=== PATIENT | male | born 1950 | race Caucasian/White ===

== ENCOUNTER 2023-12-01 09:58 | Emergency (ER) | payer OTHER, SELFPAY ==
[2023-12-01] VITALS (14 sets, daily range): BP systolic 102–164; BP diastolic 63–120; PULSE 71–83; BMI 29.2
--- NOTE | 2023-12-01 11:00 | ED.CVA ---
History of Present Illness
<Rachel Claros MD, Resident - Last Filed: 12/04/23 21:54>
General
Chief Complaint: CVA/TIA Symptoms
Source: patient, records and spouse
Exam Limitations: none
Time Seen by Provider: 12/01/23 11:00
Onset of Stroke Symptoms
Onset of symptoms known: Yes
Date of onset of symptoms: 11/27/23
Time of onset of symptoms: 10:00
Time pt last seen normal is known: No
Travel History
Have you traveled to any high risk areas for coronavirus over the past 14 days?: No
Have you had any contact with someone who has COVID-19?: No
Do you have any symptoms of coronavirus? Fever > 100 degrees, chills, cough, shortness of breath, sore throat, loss of taste or smell, muscle aches, or headache?: No
Is patient interested in receiving COVID-19 vaccine if eligible?: No
History of Present Illness
History of Present Illness:
73-year-old male with past medical history significant for stroke, depression, hyperlipidemia, Parkinson's disease presents to the ER for multiple falls. He had 2 falls on Thursday. After the first fall he was not able to get up by himself and his
had to lift him from the floor. After the fall he has been struggling to get up from the chair, put on his clothes, difficulty in wearing shoes, and maintaining steady gait. He had 2 subsequent falls following the initial 1 just tripping on
the carpet and second trying to get up from the chair. His episodes are not preceded by lightheadedness, dizziness, chest pain, palpitations, shortness of breath. He was awake alert and oriented through all 3 falls, and did not have any bowel or
bladder incontinence during the falls, no staring episodes during the falls, no rolling of eyes or tongue biting during the falls.
He has difficulty coordinating his tasks.
He has increased urinary frequency and hesitancy, was diagnosed with UTI about 4 days ago and was given cefuroxime aided by his primary care. He had a single episode of incontinence of his urine which prompted his visit to primary care.
He had about 5 falls an year ago for which he saw Dr. Middleton, neurology and was evaluated for Parkinson's and stroke.
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
Past History
<Rachel Claros MD, Resident - Last Filed: 12/04/23 21:54>
Past History
ED Past Medical History: CVA, Hypercholesterolemia and Psychiatric (Depression)
ED Past Surgical History: None
Patient has exhibited threatening behavior?: No
Social History
Tobacco: Non-smoker
Alcohol: Occasional
Drug: None
Personal:
Living: with family
Employment: Retired
Family History
Family History: Other (brother also has increased history of falls)
Review of Systems
<Rachel Claros MD, Resident - Last Filed: 12/04/23 21:54>
Review of Systems
Constitutional: Reports no symptoms
EENT: Reports no symptoms
Respiratory: Reports no symptoms
Cardiac: Reports no symptoms
ABD/GI: Reports no symptoms
: Reports no symptoms
Musculoskeletal: Reports other (Proximal and distal muscle weakness.)
Neurological: Reports weakness and other (Falls, fatigue, difficulty dressing up, difficulty wearing shoes, difficulty wearing contact lens.)
Phy Exam
<Rachel Claros MD, Resident - Last Filed: 12/04/23 21:54>
General Physical Exam
General Presentation: well appearing and no apparent distress
General Skin: warm and other (Bruising noted on the back.)
General Habitus: normal
General Mental: alert
General Hydration: appears well hydrated
Eye Exam
Eye Exam: PERRL and EOMI
Cardiovascular Exam
Cardiovascular Exam: regular rate/rhythm, no edema, no gallop and no murmur
Heart Sounds: normal
Pulmonary Exam
Pulmonary Exam: lungs clear, no respiratory distress, no rales, no crackles and no rhonchi
Gastrointestinal Exam
Gastrointestinal Exam: normal bowel sounds, non tender, soft and non distended
Neurological Exam
Neurological Exam: alert, oriented x3, facial droop and other (Pronator drift on right hand, smith to heel test positive, strength-4/5 in thighs, [id number]-ml-[id number] test difficult on the right hand, altered sensation on bilateral anterior shins, smith to
heel test positive.)
NIH Stroke Score
Level of Consciousness: 0 - Alert
LOC questions: 0-Answers both correctly
LOC Commands: 0-Performs both correctly
Best Gaze: 0-Normal
Visual Tony: 0=Normal, no visual loss
Facial palsy: 2=Partial paralysis
Motor - Right Arm: 1=Drift < 10 seconds
Motor - Left Arm: 0=No drift 10 seconds
Motor - Right Le-No drift 5 seconds
Motor - Left Le-No drift 5 seconds
Limb Ataxia: 0-Absent
Sensation: 1-Mild loss
Best Language: 0-No aphasia
Dysarthria: 0-Normal
Extinction and Inattention: 0-No abnormality
Total Score:: 4
Alteplase Contraindication
Reasons for NON-Treatment with Thrombolytics: Time
Musculoskeletal Exam
Musculoskeletal Exam: full ROM and other (No spinal or paraspinal tenderness )
Skin Exam
Skin Exam: normal color
Psychiatric Exam
Psychiatric Exam: normal mood/affect
<Cresencio Rahman MD - Last Filed: 12/01/23 12:51>
NIH Stroke Score
Total Score:: 4
<Jossie Castro PA-C - Last Filed: 12/02/23 22:54>
NIH Stroke Score
Total Score:: 4
Course
<Rachel Claros MD, Resident - Last Filed: 12/04/23 21:54>
Orders/Labs/Results
Orders:
Orders
12/01/23 11:45
NEUROLOGY CONSULT Urgent
Consulting Provider: Chris Middleton
Was physician already notified: Yes
Reason for consult: CVA symptoms.
Cardiac Monitoring- Treatment ONCE
12/01/23 11:46
Electrocardiogram (*1) Stat
Reason for Study: Other
Other Reason for Exam: neuro symptoms
EKG- Treatment ONCE
12/01/23 12:06
Complete Blood Count/With Diff Urgent
Comprehensive Metabolic Panel Urgent
12/01/23 12:31
Orthostatic VS- Treatment ONCE
12/01/23 12:34
MR Brain Without Contrast Routine
Comment:
Reason For Exam: ? LMCA acute stroke
Recent pill cam endoscopy?: No
12/01/23 12:37
Orthostatic Vital Signs As Directed
Orthostatic VS Frequency: BID
Comment: lying flat x 3 mins then check, seated 3 minutes check, stand 3 mins check
12/01/23 14:48
Patient Education As Directed
Type: Stroke education packet
Abnormal Lab Results
12/01/23
12:06
RBC 4.64 L 10^6/uL
(4.70-6.10)
Absolute Monos (auto) 0.8 H 10^3/uL
(0.1-0.6)
Lymphocytes % 18.7 L %
(20.5-51.1)
Monocytes % 12.1 H %
(1.7-9.3)
BUN 23 H mg/dl
(9-20)
Glucose 108 H mg/dl
(70-99)
12/01/23 12:06
12/01/23 12:06
Vital Signs
Initial and Last Documented VS:
Initial Vital Signs
Temp Pulse Resp BP Pulse Ox
99.1 F 79 16 145/80 98
12/01/23 10:03 12/01/23 10:03 12/01/23 10:03 12/01/23 10:03 12/01/23 10:03
Last Documented Vital Signs
Temp Pulse Resp BP Pulse Ox
99.1 F 75 18 108/70 98
12/01/23 10:03 12/01/23 18:32 12/01/23 18:32 12/01/23 18:32 12/01/23 17:00
Nuclear Power Reactor Operator consulted with Physician
Nuclear Power Reactor Operator consulted with physician?: Yes
Name of Physician Consulted: Markus Ball, neurology.
<Cresencio Rahman MD - Last Filed: 12/01/23 12:51>
Orders/Labs/Results
Orders:
Orders
12/01/23 11:45
NEUROLOGY CONSULT Urgent
Consulting Provider: Chris Middleton
Was physician already notified: Yes
Reason for consult: CVA symptoms.
Cardiac Monitoring- Treatment ONCE
12/01/23 11:46
Electrocardiogram (*1) Stat
Reason for Study: Other
Other Reason for Exam: neuro symptoms
EKG- Treatment ONCE
12/01/23 12:06
Complete Blood Count/With Diff Urgent
Comprehensive Metabolic Panel Urgent
12/01/23 12:31
Orthostatic VS- Treatment ONCE
12/01/23 12:34
MR Brain Without Contrast Routine
Comment:
Reason For Exam: ? LMCA acute stroke
Recent pill cam endoscopy?: No
12/01/23 12:37
Orthostatic Vital Signs As Directed
Orthostatic VS Frequency: BID
Comment: lying flat x 3 mins then check, seated 3 minutes check, stand 3 mins check
12/01/23 14:48
Patient Education As Directed
Type: Stroke education packet
Abnormal Lab Results
12/01/23
12:06
RBC 4.64 L 10^6/uL
(4.70-6.10)
Absolute Monos (auto) 0.8 H 10^3/uL
(0.1-0.6)
Lymphocytes % 18.7 L %
(20.5-51.1)
Monocytes % 12.1 H %
(1.7-9.3)
BUN 23 H mg/dl
(9-20)
Glucose 108 H mg/dl
(70-99)
12/01/23 12:06
12/01/23 12:06
Vital Signs
Initial and Last Documented VS:
Initial Vital Signs
Temp Pulse Resp BP Pulse Ox
99.1 F 79 16 145/80 98
12/01/23 10:03 12/01/23 10:03 12/01/23 10:03 12/01/23 10:03 12/01/23 10:03
Last Documented Vital Signs
Temp Pulse Resp BP Pulse Ox
99.1 F 75 18 108/70 98
12/01/23 10:03 12/01/23 18:32 12/01/23 18:32 12/01/23 18:32 12/01/23 17:00
Nhanlt;Jossie Castro PA-C - Last Filed: 12/02/23 22:54>
Orders/Labs/Results
Orders:
Orders
12/01/23 11:45
NEUROLOGY CONSULT Urgent
Consulting Provider: Chris Middleton
Was physician already notified: Yes
Reason for consult: CVA symptoms.
Cardiac Monitoring- Treatment ONCE
12/01/23 11:46
Electrocardiogram (*1) Stat
Reason for Study: Other
Other Reason for Exam: neuro symptoms
EKG- Treatment ONCE
12/01/23 12:06
Complete Blood Count/With Diff Urgent
Comprehensive Metabolic Panel Urgent
12/01/23 12:31
Orthostatic VS- Treatment ONCE
12/01/23 12:34
MR Brain Without Contrast Routine
Comment:
Reason For Exam: ? LMCA acute stroke
Recent pill cam endoscopy?: No
12/01/23 12:37
Orthostatic Vital Signs As Directed
Orthostatic VS Frequency: BID
Comment: lying flat x 3 mins then check, seated 3 minutes check, stand 3 mins check
12/01/23 14:48
Patient Education As Directed
Type: Stroke education packet
Abnormal Lab Results
12/01/23
12:06
RBC 4.64 L 10^6/uL
(4.70-6.10)
Absolute Monos (auto) 0.8 H 10^3/uL
(0.1-0.6)
Lymphocytes % 18.7 L %
(20.5-51.1)
Monocytes % 12.1 H %
(1.7-9.3)
BUN 23 H mg/dl
(9-20)
Glucose 108 H mg/dl
(70-99)
12/01/23 12:06
12/01/23 12:06
Vital Signs
Initial and Last Documented VS:
Initial Vital Signs
Temp Pulse Resp BP Pulse Ox
99.1 F 79 16 145/80 98
12/01/23 10:03 12/01/23 10:03 12/01/23 10:03 12/01/23 10:03 12/01/23 10:03
Last Documented Vital Signs
Temp Pulse Resp BP Pulse Ox
99.1 F 75 18 108/70 98
12/01/23 10:03 12/01/23 18:32 12/01/23 18:32 12/01/23 18:32 12/01/23 17:00
<Rachel Claros MD, Resident - Last Filed: 12/04/23 21:54>
*Critical Care Note
Total Time (30-74mins, 75-104mins- exclusive of procedures): Not Applicable
ED Attending Note
<Rachel Claros MD, Resident - Last Filed: 12/04/23 21:54>
-
Portions of this chart may have been created with voice recognition software.� Occasional wrong word or��sound alike� substitutions may have occurred due to the inherent limitations of voice recognition software.
<Cresencio Rahman MD - Last Filed: 12/01/23 12:51>
ED Attending Note
Patient seen and examined by attending physician: Yes
I performed the substantive portion of visit, reviewed & personally made and approve the management plan that is documented in note by myself or DILCIA.: Yes
ED Attending Note:
73-year-old male frequent falls the last 2 to 3 days. Some increased weakness. Unsteady on his feet. Seen by neurology in the past. May have a early Parkinson's diagnosis. However this feels different. Outpatient MRIs have shown stenosis
posterior circulation.
On exam patient is nontoxic in no distress. Warm and dry. Perfusing well. Nontoxic. No obvious facial droop. Speech is normal. Extraocular muscles intact. No trapezius weakness. He does have a subtle drift to the right arm with pronation.
Pwdfva-ox-bhko is okay. Poor exkh-gu-gjqh bilaterally. Light touch is intact.
Impression symptoms that could be consistent with CVA or could be secondary to other neurologic disease. Seen by neurology who happens to follow this patient. MRI pending. If MRI is unremarkable patient likely will be discharged to follow-up. If
MRI is positive will likely require further admission and care
Discharge Plan
Departure
Patient Disposition: Home (Routine Discharge)
Date of Disposition: 12/01/23
Time of Disposition: 18:13
Patient with high blood pressure during this ER visit?: Yes
Discharge Problem:
Falls
Referrals:
Brendan Kennedy DO [Family Provider] -
Chris Middleton MD [Active] - Next open appointment
Activity Restrictions/Additional Instructions:
The MRI of the brain shows no acute abnormality. There are old lacunar infarcts in the thalami and lentiform nucleus bilaterally, there is mild cortical cerebellar atrophy with mild left and moderate nonspecific white matter changes. Basic blood
work is unremarkable. Follow-up your primary care doctor and with Dr. Middleton. Return here if worse or any other concerns.
Interventions
Interventions:
*Risk Screen - Suicide Last Done: 12/01/23 10:03
*General Assessment Last Done: 12/01/23 10:03
*Neglect/Abuse Screening Last Done: 12/01/23 10:03
ED- Fall Risk Assessment Last Done: 12/01/23 11:46
*ED COVID-19 Vaccine History Last Done: 12/01/23 11:46
*Nursing Disposition Last Done: 12/01/23 18:39
ED- Pulmonary Assessment Last Done: 12/01/23 11:46
ED- Neurological Assessment Last Done: 12/01/23 11:46
ED- Cardiac Assessment Last Done: 12/01/23 11:46
ED Swallowing Screen Last Done: 12/01/23 11:46
Discharge Date and Time
Discharge Date/Time: 12/01/23 18:40
Print Language: [place] CITIZ[place]
--- NOTE | 2023-12-01 12:19 | CON.NEURO4 ---
Addendum entered and electronically signed by Chris Middletno MD 12/01/23 14:11:
Studies reviewed.
I have personally examined the patient. I reviewed and agree with the [employer] COOK's Note.
My addenda:
Awake, alert, interactive. No acute distress.
Speech intact.
Follows 2-step requests w/ mild difficulty. No tremor.
Extra-ocular movements grossly intact.
Facial movements full and symmetric. Hearing intact to normal conversational volume.
Normal UE movements bilaterally. Drift in right upper extremity
Neck: full ROM.
Chest: no dyspnea
Heart: no JVD
Ext: (-) Clubbing, (-) Cyanosis, (-) Edema
IMPRESSIONS/RECOMMENDATIONS:
Abrupt onset of worsening falls
Differential diagnosis includes orthostasis, subacute stroke
Replace existing order for CT of the head with MRI of brain to determine if there is an ischemic stroke to answer the patient's new right upper extremity drift
Patient does not require MRA of head and neck as he underwent those tests and was found to have absent remediatable stenosis
Patient also underwent echocardiogram in the past 6 months which failed to demonstrate an abnormality producing possibility of recurrent stroke
Continue aspirin unless demonstration of an acute or new ischemic lesion at which time consideration for the addition of clopidogrel and then changed to clopidogrel may be given
Continue high-dose atorvastatin 80 mg daily
Patient should continue physical therapy as an outpatient
Will continue to follow patient.
Original Note:
Documented by User: Jenny Kendrick NP 12/01/23 13:28
Consultation - Neurology 4
-
CONSULTING PHYSICIAN: Chris Middleton MD
REFERRING PHYSICIAN: ER/Rachel Claros MD Resident
DICTATED BY: NAUN Silverman
DATE/TIME OF REQUEST: 12/01/23
DATE/TIME OF CONSULTATION: 12/01/23
Reason for Consultation: Frequent falls, ambulatory dysfunction
History of Present Illness:
This is a 73-year-old right-handed male who has presented to the hospital with report of frequent falls and ambulatory dysfunction. Patient is followed by our outpatient Neurology service Dr. Middleton initially for abnormal gait and frequent falls and
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 He had an abnormal LILIANE scan in March 2023. MRI brain completed in May 2023 demonstrated
chronic bilateral ganglial capsular lacunar infarcts. 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 Echocardiogram 05/2023 was unremarkable. He was initiated on
aspirin 81mg daily and atorvastatin 80mg daily for stroke prevention and denies missing any doses. He was also initiated on carbidopa/levodopa 25-100 1 tablet QID but did not want to take this so he has not been on it. He was referred to a movement
specialist at [place] but his appointment was canceled and rescheduled for April 2024. He was also referred to rheumatology for positive PATITO evaluation, he has yet to schedule an appt.
Patient and his at bedside report that Starting four days ago on 11/27/23 he fell after using the bathroom at 0300. He was unable to get back up off of the ground and was lying on the ground for several hours before to his found him.
Following this, his notes that his gait was very ataxic. The following day on 11/28/23, he was sitting in a chair and fell forward to the right while trying to get up. Later that day he fell again trying to walk to the kitchen. His gait
continued to be ataxic and he also required help getting dressed. Patient denies any dizziness or warning prior to falling. He thinks he has been falling straight down but his notes he may be falling forward. He started to have urinary urgency
and and episode of urinary incontinence, leading him to be evaluated by his PCP yesterday (11/30/23). He was started on Ceftin for possible urinary tract infection and was referred to the ER for evaluation but he decided to wait until today
(12/01/23) to come to the ER.
He has been going to physical therapy every other day for his chronic ambulatory dysfunction. He notes that PT told him he didn't seem at his baseline at the end of last week. He has been ambulating without an assistive device. He notes that since
his office visit in August 2023 he has fallen a couple of times while trying to walk up the stairs and once on 11/14/23 at a birthday libertarian, which he could not get back up off of the ground by himself. He denies any headache, dizziness, vision changes,
speech/swallow difficulty, focal numbness/weakness, chest pain, palpitations, and shortness of breath. His notes that he was recently started on Vraylar for depression.
Past Medical History: Bilateral ganglial capsular lacunar ischemic infarcts, Parkinson disease, cognitive impairment, depression, idiopathic peripheral neuropathy, positive PATITO
Surgical History: b/l corneal transplant, lumbar compression fracture
Family History: Reviewed and noncontributory.
Social History: Denies tobacco and illicit drug use. Occasional alcohol.
Allergies: No known allergies.
Home Medications: See below.
Review of Symptoms:
Patient denies any fever, headache, chest pain, shortness of breath, GI or symptoms.
�Per the HPI.�All systems are reviewed negative except above.
Physical Exam:
The patient is afebrile, abdomen is nondistended, breathing is unlabored, skin is warm and dry, no edema.
NIH Stroke Scale:
I performed the NIH stroke scale on the patient on 12/01/23 at 1230. The patient scored 1 points on the NIH stroke scale assessment, which were assigned as follows: See below.
Neurologic Examination:
The patient is awake, alert and oriented x 3. He is able to follow commands and answer questions appropriately. Moderate difficulty following two-step commands. There is no aphasia or dysarthria. On cranial nerve assessment, pupils are 3 mm
bilateral, round and reactive to light and accommodation. Visual tony are full. Extraocular movements are intact. +Square wave jerks in all directions. Facial sensations are intact and bilaterally symmetrical, there is no facial asymmetry. Hearing
is intact bilaterally to normal conversation volume. Tongue palate and uvula are midline. Sternocleidomastoid strengths are full bilaterally. Motor strengths are 5-/5 bilateral upper and lower extremities on medical research [place] scale. There is
a slight RUE pronator drift. No involuntary movement noted. Deep tendon reflexes are 2+ bilateral upper and lower extremities and Babinski is absent bilaterally. There was no extinction noted on double simultaneous stimulation. Coordination is
intact by finger to nose bilaterally.
Lab Results: See below.
Neuro Imaging: None.
Differentials for the patient's presentation include:
1. Some concern for subacute stroke given RUE pronator drift, new from last office visit in August 2023.
2. Orthostatic hypotension possibly contributing to falls.
3. Urinary tract infection.
Patient has the following risk factors for their symptoms: PD, hx stroke, UTI
IV Tenecteplase/IAT candidacy: Not a candidate due to outside of time window.
Recommendations:
-MRI brain noncontrast pending.
-Check orthostatic vital signs.
-Continue aspirin 81mg daily for stroke prevention.
-Infectious workup per primary team.
-Provide patient with a stroke education packet.
Discussed patient care with: Dr. Middleton, the patient, patient's
Vital Signs and Labs
-
Vital Signs and Labs:
Vital Signs
Temp Pulse Resp BP Pulse Ox
99.1 F 73 12 102/63 97
12/01/23 10:03 12/01/23 12:37 12/01/23 12:37 12/01/23 12:37 12/01/23 12:37
Lab Results
12/01/23 12:06
12/01/23 12:06
Sodium 141 mmol/L (135-145) 12/01/23 12:06
Potassium 4.4 mmol/L (3.5-5.1) 12/01/23 12:06
BUN 23 mg/dl (9-20) H 12/01/23 12:06
Glucose 108 mg/dl (70-99) H 12/01/23 12:06
Calcium 9.6 mg/dl (8.4-10.2) 12/01/23 12:06
NIH Stroke Score
Subsequent NIH Scale
Date of Subsequent NIH Scale: 12/01/23
Time of Subsequent NIH Scale: 12:30
NIH Stroke Score
Level of Consciousness: 0 - Alert
LOC Questions: 0-Answers both correctly
LOC Commands: 0-Performs both correctly
Best Horizontal Gaze: 0-Normal
Visual Tony: 0=Normal, no visual loss
Facial Palsy: 0=Normal, symmetrical
Motor - Right Arm: 1=Drift < 10 seconds
Motor - Left Arm: 0=No drift 10 seconds
Motor - Right Le-No drift 5 seconds
Motor - Left Le-No drift 5 seconds
Limb Ataxia: 0-Absent
Sensation: 0-Normal
Best Language: 0-No aphasia
Dysarthria: 0-Normal
Extinction and Inattention: 0-No abnormality
Total Score:: 1
Modified [place] (mRS) Score
Modified [place] Scale (mRS): Moderately severe disability. Unable to attend to bodily needs/walk.
Score: 4

Documented by User: Chris Middleton MD 12/01/23 14:03
NIH Stroke Score
NIH Stroke Score
Total Score:: 1
Modified [place] (mRS) Score
Score: 4
[2023-12-01 12:20] LABS: % Basophils 0.8 % (0-2); % Eosinophils 1.3 % (0-6); % Immature Granulocytes 0.5 % (0-0.5); % Lymphocytes 18.7 % (20.5-51.1); % Monocytes 12.1 % (1.7-9.3); % Neutrophils 66.6 % (42.2-75.2); Absolute Basophils 0.1 10^3/uL (0-0.2); Absolute Eosinophils 0.1 10^3/uL (0-0.7); Absolute Lymphocytes 1.2 10^3/uL (1.2-3.4); Absolute Monocytes 0.8 10^3/uL (0.1-0.6); Absolute Neutrophils 4.1 10^3/uL (1.4-6.5); Hematocrit 41.7 % (39.0-52.0); Hemoglobin 14.2 g/dL (13.0-18.0); Mean Corp Hgb Conc. 34.1 g/dL (33.0-37.0); Mean Corpuscular Hgb 30.6 pg (27.0-31.0); Mean Corpuscular Volume 89.9 fL (80.0-94.0); Mean Platelet Volume 9.1 fL (7.4-10.4); Nucleated Red Blood Cells % 0 % (-); Platelet Count 276 10^3/uL (130-400); Red Blood Cell Count 4.64 10^6/uL (4.70-6.10); Red Cell Dist. Width 13.3 % (11.5-14.5); White Blood Cell Count 6.2 10^3/uL (4.8-10.8)
--- NOTE | 2023-12-01 12:24 | EDRN ---
Neurology currently at the pts bedside
[2023-12-01 12:35] LABS: ALT (SGPT) 41 U/L (0-50); AST (SGOT) 31 U/L (17-59); Albumin 4.3 g/dl (3.5-5.0); Alkaline Phosphatase 78 U/L (38-126); Blood Urea Nitrogen 23 mg/dl (9-20); Calcium 9.6 mg/dl (8.4-10.2); Carbon Dioxide 28 mmol/L (22-30); Chloride 102 mmol/L (98-107); Estimated Creatinine Clearance 76 ml/min; Glucose 108 mg/dl (70-99); Potassium 4.4 mmol/L (3.5-5.1); Sodium 141 mmol/L (135-145); Total Bilirubin 0.7 mg/dl (0.2-1.3); Total Protein 6.9 g/dl (6.3-8.2); eGFR > 60.00
== END 2023-12-01 18:40 | disposition home or self-care (01) ==
LOC: EMR 09:58
PROVIDERS: Student in an Organized Health Care Education/Training Program; CONSULT PHYSICIAN Psychiatry & Neurology Neurology; EMERGENCY PHYSICIAN Emergency Medicine; FAMILY PHYSICIAN Family Medicine
DX: R29.6 Repeated falls (principal); R53.1 Weakness; E78.00 Pure hypercholesterolemia, unspecified; G20.A1 Parkinson's disease without dyskinesia, without mention of fluctuations; Z28.310 Unvaccinated for COVID-19; Z79.899 Other long term (current) drug therapy; Z86.73 Personal history of transient ischemic attack (TIA), and cerebral infarction without residual deficits; Z87.440 Personal history of urinary (tract) infections
CPT/HCPCS: 99284; 70551; 80053; 85025; 93005